=== PATIENT | female | born 1960 | race Caucasian/White ===

== ENCOUNTER 2021-05-05 10:03 | Emergency (ER) | payer BC ==
[~2021-05-05] VITALS: Ht 160 cm; Wt 93.2 kg
--- NOTE | 2021-05-05 11:30 | NUR ---
late entry::PT STREET CLOTHING REMOVED. PT IN HOSPITAL GOWN. CLOTHING IN HOSPITAL BAG. OTHER BELONGINGS IN PT PURSE WHICH IS WITH WHO IS BEDSIDE. PT STATED HE WILL TAKE PT PURSE HOME. ROOM SECURED, PT GIVEN HOSPITAL SOCKS.
--- NOTE | 2021-05-05 11:50 | NUR ---
task RN: assumed care of pt on behalf of primary RN OShaunessy for break. pt resting in position of comfort. at bedside. room secure and sitter present for safety. belongings have been labeled and placed in locker. lab at bedside to draw
--- NOTE | 2021-05-05 12:07 | NUR ---
task RN: rafael brink delivered report to Karl GONCALVES
[2021-05-05 12:16] LABS: ALANINE AMINOTRANSFERASE 33 U/L (12-78); ALBUMIN 3.6 g/dL (3.4-5.0); ANION GAP 7 mmol/L (5-15); CALCIUM 9.2 mg/dL (8.5-10.1); CHLORIDE 106 mmol/L (98-107); CREATININE 0.53 mg/dL (0.55-1.02); SALICYLATE LEVEL < 1.7 mg/dL (2.8-20.0)
[2021-05-05 12:18] LABS: BASOPHILS % (AUTO) 1 % (0-1); EOSINOPHILS % (AUTO) 1 % (1-7); LYMPHOCYTES % (AUTO) 23 % (22-44); MEAN CORPUSCULAR HEMOGLOBIN 28.5 pg (27.0-34.8); MEAN CORPUSCULAR HGB CONC 33.5 g/dL (32.4-35.8); MEAN PLATELET VOLUME 8.1 fL (7.4-10.4); MONOCYTES % (AUTO) 8 % (2-9); NEUTROPHILS % (AUTO) 68 % (42-75); PLATELET COUNT 262 x10^3/uL (130-400); RED BLOOD COUNT 4.98 x10^6/uL (3.82-5.3); RED CELL DISTRIBUTION WIDTH 14.2 % (9.6-15.2)
[2021-05-05 12:27] LABS: ALKALINE PHOSPHATASE 110 U/L (45-117); BILIRUBIN,TOTAL 0.2 mg/dL (0.2-1.0); TOTAL PROTEIN 6.9 g/dL (6.4-8.2)
[2021-05-05] MEDS ORDERED: QUETIAPINE 25MG TABLET PO ONE (13:00)
[2021-05-05] MEDS ORDERED: QUETIAPINE 25MG TABLET ONE (13:30)
--- NOTE | 2021-05-05 13:35 | NUR ---
late entry::PT MEDICATED PER EMAR. PSYCH QUARTER LINING SMOOTHER HAS EVALUATED PT. PT TO BE DCd. AT BEDSIDE. AWAITING DC PAPERS.
--- NOTE | 2021-05-05 13:53 | NUR ---
ASSUMED CARE OF PATIENT. REPORT GIVEN FROM SACHA STONER. FAMILY AT BEDSIDE. PT TO BE DISCHARGED.
--- NOTE | 2021-05-05 14:00 | NUR ---
hold has been lifted. Pt has a ride home from family. Vs stable. pt ready for dc.
[2021-05-05 14:01] VITALS: BP 124/85
== END 2021-05-05 14:03 | disposition home or self-care (01) ==
LOC: ED 12:17
DX: F41.9 Anxiety disorder, unspecified (principal); T42.71XA Poisoning by unspecified antiepileptic and sedative-hypnotic drugs, accidental (unintentional), initial encounter; F32.9 Major depressive disorder, single episode, unspecified; Y92.9 Unspecified place or not applicable
CPT/HCPCS: 36415; 80053; 80299; 80320; 80329; 84443; 85025; 99283; G0480